=== PATIENT | female | born 1995 ===

== ENCOUNTER 2024-01-08 05:00 | Day surgery (SDC) | payer OTHER ==
[2024-01-02 09:25] LABS: PH,URINE 5.5 (5.0-8.0); URINE APPEARANCE Clear; URINE BILIRRUBIN Negative (NEGATIVE); URINE BLOOD Negative; URINE COLOR Yellow; URINE GLUCOSE Negative (NEGATIVE); URINE KETONE Negative (NEGATIVE); URINE LEUKOCYTE Small; URINE NITRATE Negative; URINE PROTEIN Negative (NEGATIVE)
[2024-01-02 09:29] LABS: URINE BACTERIA 1370.7 uL (0.0-1933); URINE EPITHELIAL CELLS 36.3 uL (0.0-38.8); URINE RBC 7.3 uL (0.0-20.8)
[2024-01-02 09:31] LABS: HEMOGLOBIN 9.3 g/dL (12.0-15.00); MEAN CORPUSCULAR HEMOGLOBIN 22.4 pg (27.00-32.0); MEAN CORPUSCULAR HGB CONC 32.1 g/dl (32.0-36.0); PLATELET COUNT 255 K/uL (150-450); RED BLOOD COUNT 4.16 M/uL (4.00-6.00)
[2024-01-02 09:45] LABS: URINE CAST 0.61 uL (0.0-1.40)
[2024-01-02 09:56] LABS: INR 0.97; PARTIAL THROMBOPLASTIN TIME 28.1 SECONDS (22.0-34.0); PROTHROMBIN TIME 10.2 SECONDS (9.0-11.5)
[2024-01-02 10:03] LABS: MEAN CELL VOLUME 69.8 fL (80.00-100.00)
[2024-01-02 10:30] LABS: ALBUMIN 3.9 gm/dL (3.4-5.0); BILIRUBIN TOTAL 0.26 mg/dL (0.3-1.2); CALCIUM 9.3 mg/dL (8.5-10.1); CREATININE SERUM 0.72 mg/dL (0.55-1.02); GFR 96.45; GLOBULINA 3.4 G/DL (2.4-3.5); POTASSIUM 4.84 mEq/L (3.5-5.1); TOTAL PROTEIN 7.3 gm/dL (6.4-8.2); TSH 2.76 uIU/mL (0.358-3.74)
[2024-01-08] MEDS ORDERED: CEFOXITIN SODIUM 2,000 MG VIAL IV ONE ×2 (06:02→08:00)
[2024-01-08] MEDS ORDERED: POVIDONE-IODINE 118 ML BOTT TOP ONE ×2 (07:10→08:00)
[2024-01-08] MEDS ORDERED: MORGIDOX100 MG PO (08:13)
[2024-01-08] MEDS ORDERED: NAPR500T14 PO (08:13)
[2024-01-08] MEDS ORDERED: MORPHINE SULFATE 4 MG/ML VIAL IV PRN (08:15)
[2024-01-08] MEDS ORDERED: PROMETHAZINE HCL 50 MG/ML AMPUL IM ONE (08:15)
== END 2024-01-08 14:55 | disposition home or self-care (01) ==
LOC: CIR.AMB 05:00
PROVIDERS: ATTEND Obstetrics & Gynecology
DX: N84.0 Polyp of corpus uteri (principal); D25.0 Submucous leiomyoma of uterus; N93.8 Other specified abnormal uterine and vaginal bleeding